=== PATIENT | male | born 1945 | race Caucasian/White ===

== ENCOUNTER → 2016-11-19 | Day surgery (SDC) | payer BC | END | disposition home or self-care (01) | LOC: SDC 12:33 | DX: K81.1 Chronic cholecystitis (principal); M17.9 Osteoarthritis of knee, unspecified; K21.9 Gastro-esophageal reflux disease without esophagitis; Z85.828 Personal history of other malignant neoplasm of skin | CPT/HCPCS: J1885; J2370; J2704; Q9967 ==